=== PATIENT | male | born 1995 | race African-American/Black ===

== ENCOUNTER 2017-02-15 13:55 | Emergency (ER) | payer OTHER ==
[2017-02-15 14:00] VITALS: TEMP 97.8; BMI 17.7
[2017-02-15] MEDS ORDERED: SODIUM CHLORIDE 1,000 ML IV STA (14:44)
--- NOTE | 2017-02-15 14:46 | PDOC ---
History of Present Illness - General History Source: Patient Exam Limitations: No Limitations <Zeny Gandhi - Last Filed: 02/15/17 15:45> <Lashanda Maloney - Last Filed: 02/15/17 16:12> - General Chief Complaint: Syncope/Near Syncope Stated Complaint: FAINTED Time Seen by Provider: 02/15/17 14:39 - History of Present Illness Initial Comments: 02/15/17 15:00 The patient is a 21 year old male, with significant past medical history of asthma, who presents today complaining of 1 syncopal episode while in worship this morning. The patient explains that he suddenly felt nauseas, flushed, and some abdominal cramping. He stood up in the pew to go to the bathroom, but lost consciousness and fell backwards into the pew. He denies head trauma. After a couple of seconds he regained consciousness and was alert enough to be walked to the restroom. He had a bowel movement that was normal and formed. He notes that he is lactose intolerant, ate pizza yesterday, and has been holding in his stool until today. He denies fever, chills, diarrhea. He denies lightheadedness, dizziness, headache. He denies vision changes. He denies chest pain, SOB. Allergies: fish containing products, lactose Surgical Hx: none PCP- Dr. Kuldeep Josue (Zeny Gandhi) Past History <Zeny Gandhi - Last Filed: 02/15/17 15:45> - Past Medical History Asthma: Yes Suicide Attempt (Hx): No - Immunization History Immunization Up to Date: Yes - Psycho/Social/Smoking Cessation Hx Anxiety: No Suicidal Ideation: No Smoking Status: No Smoking History: Never smoked Have you smoked in the past 12 months: No Number of Cigarettes Smoked Daily: 0 Information on smoking cessation initiated: No Hx Alcohol Use: No Drug/Substance Use Hx: No Substance Use Type: None <Lashanda Maloney - Last Filed: 02/15/17 16:12> - Past Medical History Allergies/Adverse Reactions: Allergies Allergy/AdvReac Type Severity Reaction Status Date / Time Fish Containing Products Allergy Verified 02/15/17 14:00 Home Medications: Ambulatory Orders Albuterol Sulfate Inhaler - [Ventolin HFA Inhaler -] 2 inh PO Q6H #1 inh Review of Systems - Review of Systems Able to Perform ROS?: Yes <Tristin Gandhissica - Last Filed: 02/15/17 15:45> <Lashanda Maloney - Last Filed: 02/15/17 16:12> - Review of Systems Comments:: 02/15/17 15:00 CONSTITUTIONAL: Absent: fever, chills, diaphoresis, generalized weakness, malaise, loss of appetite HEENT: Absent: rhinorrhea, nasal congestion, throat pain, throat swelling, difficulty swallowing, mouth swelling, ear pain, eye pain, visual Changes CARDIOVASCULAR: Absent: chest pain, palpitations, irregular heart rate, lightheadedness, peripheral edema RESPIRATORY: Absent: cough, shortness of breath, dyspnea with exertion, orthopnea, wheezing, stridor, hemoptysis GASTROINTESTINAL: Present: abdominal cramping, nausea Absent:, abdominal distension, vomiting, diarrhea, constipation, melena, hematochezia GENITOURINARY: Absent: dysuria, frequency, urgency, hesitancy, hematuria, flank pain, genital pain MUSCULOSKELETAL: Absent: myalgia, arthralgia, joint swelling SKIN: Absent: rash, itching, pallor HEMATOLOGIC/IMMUNOLOGIC: Absent: easy bleeding, easy bruising, lymphadenopathy, frequent infections ENDOCRINE: Absent: unexplained weight gain, unexplained weight loss, heat intolerance, cold intolerance NEUROLOGIC: Present: 1 syncopal episode Absent: headache, focal weakness or paresthesias, dizziness, unsteady gait, seizure, mental status changes, bladder or bowel incontinence PSYCHIATRIC: Absent: anxiety, depression, suicidal or homicidal ideation, hallucinations. (Zeny Gandhi) *Physical Exam <Zeny Gandhi - Last Filed: 02/15/17 15:45> <Lashanda Maloney - Last Filed: 02/15/17 16:12> - Vital Signs Last Vital Signs Temp Pulse Resp BP Pulse Ox 97.8 F 61 18 102/51 100 02/15/17 13:57 02/15/17 13:57 02/15/17 13:57 02/15/17 13:57 02/15/17 13:57 - Physical Exam Comments: 02/15/17 15:00 GENERAL: Well developed, well nourished. Awake and alert. No acute distress. HEENT: Normocephalic, atraumatic. PERRLA, EOMI. No conjunctival pallor. Sclera are non- icteric. Moist mucous membranes. Oropharynx is clear. NECK: Supple. Full ROM. No JVD. Carotid pulses 2+ and symmetric, without bruits. No thyromegaly. No lymphadenopathy. CARDIOVASCULAR: Regular rate and rhythm. +Midsystolic click, No bruits. No rubs, or gallops. Distal pulses are 2+ and symmetric. PULMONARY: No evidence of respiratory distress. Lungs clear to auscultation bilaterally. No wheezing, rales or rhonchi. ABDOMINAL: Soft. Non-tender. Non-distended. No rebound or guarding. No organomegaly. Normoactive bowel sounds. MUSCULOSKELETAL Normal range of motion at all joints. No bony deformities or tenderness. No CVA tenderness. EXTREMITIES: No cyanosis. No clubbing. No edema. No calf tenderness. SKIN: Warm and dry. Normal capillary refill. No rashes. No jaundice. NEUROLOGICAL: Alert, awake, appropriate. Cranial nerves 2-12 intact. No deficits to light touch and temperature in face, upper extremities and lower extremities. No motor deficits in the in face, upper extremities and lower extremities. Normoreflexic in the upper and lower extremities. Normal speech. Toes are down-going bilaterally. Gait is normal without ataxia. PSYCHIATRIC: Cooperative. Good eye contact. Appropriate mood and affect. (Zeny Gandhi) Heart Score/ECG Review #1 Compared to previous ECG there are: Previous ECG unavail <Zeny Gandhi - Last Filed: 02/15/17 15:45> <Lashanda Maloney - Last Filed: 02/15/17 16:12> #1 02/15/17 15:45 Sinus hakeem at 43bpm Otherwise normal EKG (Zeny Gandhi) ED Treatment Course - LABORATORY CBC & Chemistry Diagram: 02/15/17 14:50 02/15/17 14:50 <Zeny Gandhi - Last Filed: 02/15/17 15:45> - LABORATORY CBC & Chemistry Diagram: 02/15/17 14:50 02/15/17 14:50 <Lashanda Maloney - Last Filed: 02/15/17 16:12> - ADDITIONAL ORDERS Additional order review: Laboratory Results 02/15/17 14:50 Sodium 141 Potassium 4.8 Chloride 105 Carbon Dioxide 27 Anion Gap 9 BUN 6 L Creatinine 0.7 Creat Clearance w eGFR > 60 Random Glucose 85 Calcium 8.8 Total Bilirubin 0.6 AST 18 ALT 20 Alkaline Phosphatase 173 H Total Protein 6.9 Albumin 3.8 02/15/17 14:50 RBC 4.65 MCV 93.4 MCHC 33.3 RDW 13.3 MPV 9.1 Neutrophils % 44.0 Lymphocytes % 44.9 H Monocytes % 9.4 Eosinophils % 0.8 Basophils % 0.9 - RADIOLOGY Radiology Studies Ordered: Category Date Time Status ABDOMEN-KUB FLAT PLATE [RAD] Stat Radiology 02/15/17 14:42 Completed Radiograph Interpretation: 02/15/17 15:30 EXAM#: TYPE/EXAM: RESULT: [id number] RAD/ABDOMEN-KUB FLAT PLATE Abdomen: Syncope A single view of the abdomen reveals a nonspecific bowel pattern with air and stool scattered throughout but no sign of free air, organomegaly or calcifications of significance. Pneumatosis is not seen. The bones and soft tissues are unremarkable. There is a belt buckle artifact by the symphysis pubis. Impression: No acute pathology. Retained stool. If symptoms persist, further imaging may be of help Reported By: Abhijeet Hernandez MD 02/15/17 1523 (Zeny Gandhi) - Medications Given in the ED: ED Medications Discontinued Medications Generic Name Dose Route Start Last Admin Trade Name Freq PRN Reason Stop Dose Admin Sodium Chloride 1,000 mls @ 1,000 mls/hr 02/15/17 14:44 02/15/17 14:52 Normal Saline - IV 02/15/17 15:43 1,000 mls/hr ASDIR STA Administration Medical Decision Making <Zeny Gandhi - Last Filed: 02/15/17 15:45> <Lashanda Maloney - Last Filed: 02/15/17 16:12> - Medical Decision Making 02/15/17 16:06 Alert and conversant 21-year-old male presents because he had a fainting episode at worship. He said that he needed to go to the bathroom, but had been holding it since yesterday. Past medical history positive for asthma, lactose intolerant Past surgical history none PCP Dr. Josue He denies any fever, chills, cough, chest pain, abdominal pain, visual changes, headache Patient stated that before he fainted. He felt some abdominal cramping, like he needed to relieve himself and he felt flushed and then he fainted back onto the worship pew. There was no head trauma. Shortly after this episode, He walked to the bathroom to relieve himself EKG shows sinus bradycardia at 49 KUB shows some stool consistent with constipation CBC and chemistries are basically unremarkable Impression vasovagal episode/constipation (Lashanda Maloney) *DC/Admit/Observation/Transfer <Zeny Gandhi - Last Filed: 02/15/17 15:45> <Lashanda Maloney - Last Filed: 02/15/17 16:12> Diagnosis at time of Disposition: Vasovagal near syncope Constipation Qualifiers: Constipation type: other constipation type Qualified Code(s): K59.09 - Other constipation - Discharge Dispostion Disposition: HOME Condition at time of disposition: Stable - Patient Instructions Printed Discharge Instructions: DI for Syncope in Adults (Fainting), DI for Constipation Additional Instructions: please rest today and keep hydrated You may try colace or miralax for constipation follow up with your regular physician return for any worsening symptoms - Attestations Scribe Attestion: 02/15/17 15:01 Documentation prepared by CHAYO Bustamante, acting as medical manager for Lashanda Maloney MD. (Zeny Gandhi)
[2017-02-15 14:58] LABS: BASOPHIL 0.9 % (0-2.0); EOSINOPHIL 0.8 % (0-4.5); MCH 31.1 pg (25.7-33.7); MCHC 33.3 g/dl (32.0-35.9); MEAN CELL VOLUME 93.4 fl (80-96); MEAN PLT VOLUME 9.1 fl (7.5-11.1); RDW 13.3 % (11.9-15.9); WHITE BLOOD COUNT 3.3 K/mm3 (4.0-10.0)
[2017-02-15 15:28] LABS: ALBUMIN 3.8 g/dl (3.4-5.0); ALK PHOS 173 U/L (45-117); ANION GAP 9 (8-16); BILIRUBIN,TOTAL 0.6 mg/dL (0.2-1.0); CALCIUM 8.8 mg/dL (8.5-10.1); CO2 27 mmol/L (21-32); COCKROFT - GAULT 130.67; CREATININE 0.7 mg/dL (0.7-1.3); GLUCOSE,RANDOM 85 mg/dL (74-106); SGOT/AST 18 U/L (15-37); SGPT/ALT 20 U/L (12-78); TOT PROT 6.9 g/dl (6.4-8.2)
[2017-02-15 15:40] LABS: PLATELET COUNT 182 K/MM3 (134-434)
[2017-02-15 16:17] LABS: PLATELET ESTIMATE ADEQUATE (NORMAL)
[2017-02-15 16:20] VITALS: BP 115/63; PULSE 78
--- NOTE | 2017-02-16 14:09 | EKG ---
Test Reason : Blood Pressure : / mmHG Vent. Rate : 049 BPM Atrial Rate : 049 BPM P-R Int : 180 ms QRS Dur : 084 ms QT Int : 488 ms P-R-T Axes : 044 008 024 degrees QTc Int : 440 ms SINUS BRADYCARDIA WITH SINUS ARRHYTHMIA OTHERWISE NORMAL ECG NO PREVIOUS ECGS AVAILABLE Confirmed by SYBIL ELI MD ([id number]) on 02/16/2017 2:09:19 PM Referred By: Confirmed By:SYBIL ELI MD
== END 2017-02-15 16:20 | disposition home or self-care (01) ==
LOC: JER 13:55
PROC: 3E0337Z Introduction of Electrolytic and Water Balance Substance into Peripheral Vein, Percutaneous Approach (ICD-10-PCS; principal; 2017-02-15)
DX: R55 Syncope and collapse (principal); K59.09 Other constipation; J45.909 Unspecified asthma, uncomplicated; Z91.013 Allergy to seafood; E73.9 Lactose intolerance, unspecified
CPT/HCPCS: 36415; 74000-TC; 80053; 85025; 93005; 93010; 96360; 99284-25